=== PATIENT | male | born 1980 | race Caucasian/White ===

== ENCOUNTER 2016-12-26 17:23 | Emergency (ER) | payer SELFPAY ==
[~2016-12-26] VITALS: Ht 188 cm; Wt 74.0 kg
[~2016-12-26 17:23] MED LIST: AMOXICILLIN500 MG PO; ATARAX,VISTARIL25 MG PO; INDOCIN25 MG PO; LIDOCAINE20 MG/1 M5 PO; LORTAB 5-325 M1 EACH PO; NAPROSYN500 MG PO; PEN-VEE K,VEET500 MG PO
[2016-12-26 18:16] LABS: HEMATOCRIT 45.4 % (38.0-50.0); MCH 29.5 PG (29.0-34.0); MCV 89.4 FL (86-99); MEAN PLAT.VOLUME 11.2 uM^3 (9.0-12.4); PLATELET COUNT 212 K/uL (156-360); RBC DIS.WIDTH-SD 39.8 % (39-53); RED BLOOD COUNT 5.08 M/uL (4.00-5.50); WHITE BLOOD COUNT 8.8 K/uL (4.1-10.2)
[2016-12-26 18:26] LABS: CHLORIDE 104 mEq/L (99-109); SODIUM 139 mEq/L (136-147)
[2016-12-26 18:27] LABS: GLUCOSE 88 mg/dL (70-99)
[2016-12-26 18:29] LABS: ANION GAP 9 MEQ/L (2-14)
[2016-12-26 18:31] LABS: GFR ESTIMATE (CALCULATED) > 59 mL/min/
[2016-12-26 18:32] LABS: UREA NITROGEN (BUN) 9 mg/dL (9-23)
[2016-12-26 19:21] LABS: ADD MIUA? NO; BILIRUBIN NEGATIVE; BLOOD NEGATIVE; COLOR STRAW ((YELLOW)); GLUCOSE (STRIP) NEGATIVE; KETONES NEGATIVE; LEUKOCYTES NEGATIVE; NITRITE NEGATIVE; PROTEIN (STRIP) NEGATIVE; SPECIFIC GRAVITY 1.008 (1.000-1.030); UCUL ADDED? NO; UROBILINOGEN 0.2 MG/DL (0.2-1.0)
[2016-12-26] MEDS ORDERED: ZYRTEC10 M2 PO (19:31)
[2016-12-26] MEDS ORDERED: AFRIN,GENASAL D15 ML BOTH NARES (19:31)
[2016-12-26 20:40] VITALS: BP 133/87
== END 2016-12-26 20:40 | disposition home or self-care (01) ==
LOC: EME 17:23 → RME 17:23
DX: R51 Headache (principal); Z87.891 Personal history of nicotine dependence
CPT/HCPCS: 80048; 81003; 85027; 99281; 99283

== ENCOUNTER 2017-05-09 17:53 | Emergency (ER) | payer SELFPAY ==
[~2017-05-09] VITALS: Ht 185.4 cm; Wt 74.1 kg
[~2017-05-09 17:53] MED LIST changes: +AFRIN,GENASAL D15 ML BOTH NARES; +ZYRTEC10 M2 PO
[2017-05-09 19:47] LABS: EOSINOPHIL (%) 0.6 % (0-5); EOSINOPHIL COUNT 0.1 K/uL (0-0.3); HEMATOCRIT 45.5 % (38.0-50.0); IMMATURE GRANULOCYTE (%) 0.7 % (0.0-0.7); IMMATURE GRANULOCYTE COUNT 0.1 K/uL; LYMPHOCYTE COUNT 1.6 K/uL (1.0-2.8); MCH 29.1 PG (29.0-34.0); MCV 88.2 FL (86-99); MEAN PLAT.VOLUME 10.8 uM^3 (9.0-12.4); MONOCYTE COUNT 0.6 K/uL (0-0.8); NEUTROPHIL (%) 76.9 % (45-76); PLATELET COUNT 215 K/uL (156-360); RBC DIS.WIDTH-CV 12.7 % (11.8-14.6); RBC DIS.WIDTH-SD 41.4 % (39-53); RED BLOOD COUNT 5.16 M/uL (4.00-5.50); WHITE BLOOD COUNT 10.4 K/uL (4.1-10.2)
[2017-05-09 19:55] LABS: CHLORIDE 106 mEq/L (99-109); POTASSIUM 4.3 mEq/L (3.7-5.4); SODIUM 140 mEq/L (136-147)
[2017-05-09 19:57] LABS: GLUCOSE 99 mg/dL (70-99)
[2017-05-09 19:58] LABS: ANION GAP 7 MEQ/L (2-14)
[2017-05-09 19:59] LABS: TOTAL BILIRUBIN 0.4 mg/dL (0.0-1.0)
[2017-05-09 20:01] LABS: ALKALINE PHOSPHATASE 81 IU/L (3-129); GFR ESTIMATE (CALCULATED) > 59 mL/min/
[2017-05-09 20:02] LABS: UREA NITROGEN (BUN) 9 mg/dL (9-23)
[2017-05-09 21:18] LABS: ADD MIUA? NO; BILIRUBIN NEGATIVE; BLOOD NEGATIVE; COLOR YELLOW ((YELLOW)); GLUCOSE (STRIP) NEGATIVE; KETONES NEGATIVE; LEUKOCYTES NEGATIVE; NITRITE NEGATIVE; PROTEIN (STRIP) NEGATIVE; SPECIFIC GRAVITY 1.014 (1.000-1.030); UROBILINOGEN 0.2 MG/DL (0.2-1.0)
[2017-05-09] MEDS ORDERED: INDOCIN50 MG PO (22:37)
[2017-05-09] MEDS ORDERED: BACTRIM,SEPT1 TABLET PO (22:37)
[2017-05-09 22:42] VITALS: BP 121/91
== END 2017-05-09 22:43 | disposition home or self-care (01) ==
LOC: EME 17:53
PROVIDERS: Physician Assistant
DX: R10.31 Right lower quadrant pain (principal); N41.0 Acute prostatitis; Z87.891 Personal history of nicotine dependence
CPT/HCPCS: 74177; 80053; 81003; 85025; 87086; 99281; 99284; J1885; J7030

== ENCOUNTER 2018-01-15 06:08 | Emergency (ER) | payer SELFPAY ==
[~2018-01-15] VITALS: Ht 185.4 cm; Wt 73.7 kg
[~2018-01-15 06:08] MED LIST changes: +BACTRIM,SEPT1 TABLET PO; +INDOCIN50 MG PO
[2018-01-15 07:07] LABS: BASOPHIL (%) 0.3 % (0-1); EOSINOPHIL (%) 0.8 % (0-5); EOSINOPHIL COUNT 0.1 K/uL (0-0.3); IMMATURE GRANULOCYTE (%) 0.4 % (0.0-0.7); LYMPHOCYTE (%) 14.9 % (15-42); MCH 29.2 PG (29.0-34.0); MCHC 34.1 G/DL (30.0-36.0); MCV 85.8 FL (86-99); MONOCYTE (%) 6.3 % (3-12); MONOCYTE COUNT 0.8 K/uL (0-0.8); NEUTROPHIL (%) 77.3 % (45-76); NEUTROPHIL COUNT 10.4 K/uL (1.8-6.4); PLATELET COUNT 246 K/uL (156-360); RBC DIS.WIDTH-CV 12.5 % (11.8-14.6); RED BLOOD COUNT 5.13 M/uL (4.00-5.50); WHITE BLOOD COUNT 13.4 K/uL (4.1-10.2)
[2018-01-15 07:35] LABS: CHLORIDE 104 MEQ/L (99-109); SODIUM 136 MEQ/L (136-147)
[2018-01-15 07:41] LABS: CREATININE 0.8 MG/DL (0.6-1.3); GFR ESTIMATE (CALCULATED) > 59 mL/min/ (58.99-99999); GLUCOSE 122 mg/dL (70-99); SERUM ETHYL ALCOHOL < 10 mg/dL; UREA NITROGEN (BUN) 10 mg/dL (9-23)
[2018-01-15 08:35] LABS: APPEARANCE CLEAR ((CLEAR)); BILIRUBIN NEGATIVE; BLOOD NEGATIVE; COLOR YELLOW ((YELLOW)); GLUCOSE (STRIP) NEGATIVE; KETONES NEGATIVE; LEUKOCYTES NEGATIVE; NITRITE NEGATIVE; PROTEIN (STRIP) NEGATIVE; UROBILINOGEN 0.2 MG/DL (0.2-1.0)
[2018-01-15 08:45] LABS: AMPHETAMINE NEGATIVE (500 ng/mL); BARBITURATES NEGATIVE (200 ng/mL); BENZODIAZEPINES NEGATIVE (150 ng/mL); BUPRENORPHINE NEGATIVE (10 ng/mL); COCAINE NEGATIVE (150 ng/mL); METHADONE NEGATIVE (200 ng/mL); METHAMPHETAMINE NEGATIVE (500 ng/mL); OPIATES (MORPHINE) NEGATIVE (100 ng/mL); OXYCODONE NEGATIVE (100 ng/mL); PHENCYCLIDINE NEGATIVE (25 ng/mL); PROPOXYPHENE NEGATIVE (300 ng/mL); THC CANNABINOIDS PRESUMPTIVE POSITIVE (50 ng/mL); TRICYCLIC ANTIDEPRESSANTS NEGATIVE (300 ng/mL)
[2018-01-15 09:23] VITALS: BP 121/72
== END 2018-01-15 09:26 | disposition home or self-care (01) ==
LOC: EME 06:08
PROVIDERS: Emergency Medicine
DX: F41.9 Anxiety disorder, unspecified (principal); F32.9 Major depressive disorder, single episode, unspecified; F43.23 Adjustment disorder with mixed anxiety and depressed mood; F12.20 Cannabis dependence, uncomplicated; F17.200 Nicotine dependence, unspecified, uncomplicated
CPT/HCPCS: 80048; 81003; 84999; 85025; 90839; 99281; 99284; G0480